=== PATIENT | male | born 1970 | race African-American/Black ===

== ENCOUNTER 2016-10-25 12:46 | Emergency (ER) | payer SELFPAY ==
[2016-10-25] MEDS ORDERED: HYDROCODONE/ACETAMINOPHEN 5-325 MG TABLET PO ONE (14:16)
[2016-10-25 15:00] LABS: ABSOLUTE EOSINOPHILS # (AUTO) 0.1 10^3/uL (0.0-0.6); ABSOLUTE LYMPHOCYTES (AUTO) 1.1 10^3/uL (0.5-4.7); ABSOLUTE MONOCYTES (AUTO) 1.2 10^3/uL (0.1-1.4); ABSOLUTE NEUT (AUTO) 5.5 10^3/uL (1.7-8.2); BASOPHILS % (AUTO) 0.3 % (0-2); EOSINOPHILS % (AUTO) 1.5 % (0-6); HEMATOCRIT 45.9 % (37.9-51.0); HGB HCT DIFFERENCE -0.9; LYMPHOCYTES % (AUTO) 13.5 % (13-45); MEAN CORPUSCULAR HEMOGLOBIN 32.6 pg (27.0-33.4); MEAN CORPUSCULAR HGB CONC 32.6 g/dL (32.0-36.0); MEAN CORPUSCULAR VOLUME 100 fl (80-97); MONOCYTES % (AUTO) 14.7 % (3-13); RED BLOOD COUNT 4.59 10^6/uL (4.35-5.55); RED CELL DISTRIBUTION WIDTH 14.1 % (11.5-14.0); WHITE BLOOD COUNT 7.9 10^3/uL (4.0-10.5)
--- NOTE | 2016-10-25 15:14 | ER Document Report ---
ED Medical Screen (RME) - General Chief Complaint: Abdominal Pain Stated Complaint: ABDOMINAL PAIN, BLOOD IN STOOL Time Seen by Provider: 10/25/16 14:14 Mode of Arrival: Ambulatory Information source: Patient Notes: 46-year-old male presents with complaints of multiple episodes of diarrhea with blood in left lower quadrant abdominal pain. Denies any fevers or chills I have greeted and performed a rapid initial assessment of this patient. A comprehensive ED assessment and evaluation of the patient, analysis of test results and completion of the medical decision making process will be conducted by additional ED providers. PHYSICAL EXAMINATION: GENERAL: Well-appearing, well-nourished and in no acute distress. HEAD: Atraumatic, normocephalic. EYES: Pupils equal round extraocular movements intact, conjunctiva are normal. ENT: Nares patent NECK: Normal range of motion LUNGS: No respiratory distress Musculoskeletal: Normal range of motion mild left lower quadrant tenderness NEUROLOGICAL: Normal speech, normal gait. PSYCH: Normal mood, normal affect. SKIN: Warm, Dry, normal turgor, no rashes or lesions noted. TRAVEL OUTSIDE OF THE [place] IN LAST 30 DAYS: No - Related Data Allergies/Adverse Reactions: No Known Allergies Allergy (Unverified 11/18/11 08:35) Past Medical History - Social History Chew tobacco use (# tins/day): No Frequency of alcohol use: Heavy Drug Abuse: None Renal/ Medical History: Denies: Hx Peritoneal Dialysis - Immunizations Hx Diphtheria, Pertussis, Tetanus Vaccination: Yes Physical Exam - Vital signs Vitals: Temp Pulse Resp BP Pulse Ox 97.9 F 88 20 144/93 H 98 10/25/16 13:20 10/25/16 13:20 10/25/16 13:20 10/25/16 13:20 10/25/16 13:20 Course - Vital Signs Vital signs: Temp Pulse Resp BP Pulse Ox 97.9 F 88 20 144/93 H 98 10/25/16 13:20 10/25/16 13:20 10/25/16 13:20 10/25/16 13:20 10/25/16 13:20 - Laboratory Result Diagrams: 10/25/16 14:44 10/25/16 14:44 Laboratory results interpreted by me: 10/25/16 14:44 MCV 100 H RDW 14.1 H Monocytes % 14.7 H
[2016-10-25 15:19] LABS: ALANINE AMINOTRANSFERASE 82 U/L (21-72); ALBUMIN 4.3 g/dL (3.5-5.0); ALKALINE PHOSPHATASE 85 U/L (38-126); ANION GAP 14 (5-19); ASPARTATE AMINO TRANSFERASE 84 U/L (17-59); BILIRUBIN,DIRECT 0.3 mg/dL (0.0-0.4); BILIRUBIN,TOTAL 1.2 mg/dL (0.2-1.3); BLOOD UREA NITROGEN 6 mg/dL (7-20); CALCIUM 9.5 mg/dL (8.4-10.2); CARBON DIOXIDE 26 mmol/L (22-30); CHLORIDE 99 mmol/L (98-107); GLUCOSE 83 mg/dL (75-110); SODIUM 139.4 mmol/L (137-145); TOTAL PROTEIN 7.8 g/dL (6.3-8.2)
[2016-10-25 17:10] LABS: APPEARANCE,URINE SLIGHTLY-CLOUDY; BILIRUBIN,URINE MODERATE (NEGATIVE); GLUCOSE, URINE NEGATIVE (NEGATIVE); KETONES,URINE 300 mg/dL (NEGATIVE); NITRITE,URINE NEGATIVE (NEGATIVE); PROTEIN,URINE 100 mg/dL (NEGATIVE); URINE SPECIFIC GRAVITY 1.032
[2016-10-25 17:11] LABS: BACTERIA,URINE 1+ /HPF; LEUKOCYTE ESTERASE,URINE LARGE (NEGATIVE); WBC,URINE 30-50 /HPF
--- NOTE | 2016-10-25 17:33 | ER Document Report ---
ED GI/ - General Chief Complaint: Abdominal Pain Stated Complaint: ABDOMINAL PAIN Time Seen by Provider: 10/25/16 14:14 Mode of Arrival: Ambulatory Information source: Patient Notes: 46-year-old male presents with approximately 3-4 days of left lower quadrant pain accompanied by diarrhea and intermittent bright red blood per rectum. He has some mild rectal pain. He denies any foreign bodies. Denies fever. He had one day where he had some vomiting. The pain is sharp in the left lower quadrant without radiation and he notes that when he is having a bowel movement and is partially intermittent other than that. He denies any upper abdominal pain. No recent antibiotic use. Characterizes the diarrhea as watery. Appetite has been poor. No anticoagulants. Denies recent travel or antibiotic use. TRAVEL OUTSIDE OF THE [place] IN LAST 30 DAYS: No - Related Data Allergies/Adverse Reactions: No Known Allergies Allergy (Unverified 11/18/11 08:35) Past Medical History - General Information source: Patient - Social History Smoking Status: Current Every Day Smoker Chew tobacco use (# tins/day): No Frequency of alcohol use: Heavy Drug Abuse: None Family History: Reviewed & Not Pertinent Patient has suicidal ideation: No Patient has homicidal ideation: No Renal/ Medical History: Denies: Hx Peritoneal Dialysis - Immunizations Hx Diphtheria, Pertussis, Tetanus Vaccination: Yes Review of Systems - Review of Systems -: Yes All other systems reviewed and negative - Denies weight change Physical Exam - Vital signs Vitals: Temp Pulse Resp BP Pulse Ox 97.9 F 88 20 144/93 H 98 10/25/16 13:20 10/25/16 13:20 10/25/16 13:20 10/25/16 13:20 10/25/16 13:20 Interpretation: Hypertensive - Notes Notes: GENERAL: VS as per nursing doc. Well-appearing, well-nourished and in no acute distress. HEAD: Atraumatic, normocephalic. EYES: Pupils equal round and reactive to light, extraocular movements intact, sclera anicteric, no conjunctival injection or discharge. ENT: Nares patent, oropharynx clear without exudates, moist mucous membranes. NECK: Normal range of motion, supple without lymphadenopathy. LUNGS: Breath sounds clear to auscultation bilaterally and equal. No wheezes rales or rhonchi. HEART: Regular rate and rhythm without murmurs. ABDOMEN: Soft, minimal left lower quadrant tenderness to palpation. No mass noted. No upper abdominal tenderness. Normoactive bowel sounds. No guarding, no rebound. No masses appreciated. No Alsey sign. : No gross blood noted. There is moderate rectal tenderness. Tenesmus. No stool noted, negative Hemoccult with just mucus. No obvious mass. BACK: No CVA tenderness. EXTREMITIES: Normal range of motion, no calf tenderness, no edema. NEUROLOGICAL: Cranial nerves grossly intact. Normal speech. Normal sensory and motor exams. No gross cerebellar abnormalities. PSYCH: Normal mood, normal affect. SKIN: Warm, dry, normal turgor. Course - Re-evaluation Re-evalutation: 10/25/16 18:49 CT showed pancolitis, I suspect infectious etiology though inflammatory bowel despite no family history is a consideration. His lipase was elevated but clinically he does not seem to have pancreatitis as well the pancreas did not show pancreatitis on the CT scan. We will place the patient on Cipro and Flagyl and have him get close follow-up in the next 2 days with recheck here if he cannot get into gastroenterology. - Vital Signs Vital signs: Temp Pulse Resp BP Pulse Ox 97.9 F 88 20 144/93 H 98 10/25/16 13:20 10/25/16 13:20 10/25/16 13:20 10/25/16 13:20 10/25/16 13:20 - Laboratory Result Diagrams: 10/25/16 14:44 10/25/16 14:44 Laboratory results interpreted by me: 10/25/16 10/25/16 10/25/16 14:44 14:44 14:44 MCV 100 H RDW 14.1 H Monocytes % 14.7 H BUN 6 L AST 84 H ALT 82 H Lipase 569.7 H Urine Protein Urine Ketones Urine Blood Urine Bilirubin Urine Urobilinogen Ur Leukocyte Esterase 10/25/16 16:25 MCV RDW Monocytes % BUN AST ALT Lipase Urine Protein 100 H Urine Ketones 300 H Urine Blood SMALL H Urine Bilirubin MODERATE H Urine Urobilinogen 2.0 H Ur Leukocyte Esterase LARGE H - Diagnostic Test Radiology reviewed: Image reviewed - Pancolitis, Reports reviewed Discharge - Discharge Clinical Impression: Colitis Condition: Good Disposition: HOME, SELF-CARE Instructions: Abdominal Pain ([facility]) Additional Instructions: No alcohol as it will cause a severe reaction with the Flagyl. Ensure you get follow-up in the next 2 or 3 days. Call the listed delivery table operator for follow-up. You as well need a primary care physician. See the below referral. Finished all of the antibiotics as directed. Return if you are worsening. Prescriptions: Hyoscyamine Sulfate [Levsin 0.125 Tablet] 0.125 - 0.25 mg PO Q6HP PRN #12 tablet PRN Reason: For Abdominal Pain Ciprofloxacin HCl [Cipro 500 mg Tablet] 500 mg PO BID #14 tablet Metronidazole [Flagyl 500 mg Tablet] 500 mg PO Q8 #21 tablet Promethazine HCl [Phenergan 25 mg Tablet] 1 - 2 tab PO Q6H PRN #15 tablet PRN Reason: Forms: Smoking Cessation Education Referrals: DORI SHEFFIELD MD [ACTIVE STAFF] - Follow up in 3-5 days [facility] [Provider Group] - Follow up as needed
--- NOTE | 2016-10-25 17:42 | RADIOLOGY REPORT (SQ) ---
EXAM DESCRIPTION: CT ABD/PELVIS WITH IV ONLY COMPLETED DATE/TIME: 10/25/2016 5:20 pm REASON FOR STUDY: LLQ pain , blood in stool COMPARISON: None. TECHNIQUE: CT scan of the abdomen and pelvis performed using helical scanning technique with dynamic intravenous contrast injection. No oral contrast. Images reviewed with lung, soft tissue, and bone windows. Reconstructed coronal and sagittal MPR images reviewed. Delayed images for evaluation of the urinary system also acquired. All images stored on PACS. All CT scanners at this facility use dose modulation, iterative reconstruction, and/or weight based d osing when appropriate to reduce radiation dose to as low as reasonably achievable (ALARA). [facility]: Dose Right [facility]: CareDose [facility]: Dose Right [facility]: Teradose 4D [facility]: [employer] CONTRAST TYPE AND DOSE: 88mL Isovue 370- low osmolar. RENAL FUNCTION: BUN 6 creatinine 0.8. RADIATION DOSE: 14.93mGy. LIMITATIONS: None. FINDINGS: LOWER CHEST: No significant findings. No nodules or infiltrates. LIVER: Normal size. Diffuse fatty infiltration. No masses or dilated ducts. SPLEEN: Normal size. No focal lesions. PANCREAS: No masses. No significant calcifications. No adjacent inflammation or peripancreatic fluid collections. Pancreatic duct not dilated. GALLBLADDER: No identified stones by CT criteria. No inflammatory changes to suggest cholecystitis. ADRENAL GLANDS: No significant masses or asymmetry. RIGHT KIDNEY AND URETER: No solid masses. No significant calcifications. No hydronephrosis or hyd roureter. LEFT KIDNEY AND URETER: No solid masses. No significant calcifications. No hydronephrosis or hydr oureter. AORTA AND VESSELS: No aneurysm. No dissection. Renal arteries, SMA, celiac without stenosis. RETROPERITONEUM: No retroperitoneal adenopathy, hemorrhage or masses. BOWEL AND PERITONEAL CAVITY: Diffuse bowel wall thickening and edema involving essentially the entire colon from cecum to sigmoid. No free fluid or peritoneal masses. APPENDIX: Normal. PELVIS: No mass or free fluid. Normal bladder. ABDOMINAL WALL: No masses. No hernias. BONES: No significant or acute findings. OTHER: No other significant finding. IMPRESSION: 1. DIFFUSE PANCOLITIS. POSSIBLE ETIOLOGIES INCLUDE INFLAMMATORY BOWEL DISEASE OR INFECTIOUS CAUSE. 2. NO OTHER SIGNIFICANT OR ACUTE FINDING IN THE ABDOMEN OR PELVIS ON CT SCAN WITH IV CONTRAST. TECHNICAL DOCUMENTATION: JOB ID: [id number] Quality ID # [id number]: Final reports with documentation of one or more dose reduction techniques (e.g., Au tomated exposure control, adjustment of the mA and/or kV according to patient size, use of iterative reconstruction technique) 2010 [employer]- All Rights Reserved
[2016-10-25] MEDS ORDERED: CIPROFLOXACIN HCL 500 MG TABLET PO ONE (18:50)
[2016-10-25] MEDS ORDERED: METRONIDAZOLE 500 MG TABLET PO ONE (18:50)
[2016-10-25 19:13] VITALS: BP 129/78
== END 2016-10-25 19:12 | disposition home or self-care (01) ==
LOC: ER 12:46
DX: K52.9 Noninfective gastroenteritis and colitis, unspecified (principal); R10.32 Left lower quadrant pain; K62.5 Hemorrhage of anus and rectum; F17.200 Nicotine dependence, unspecified, uncomplicated
CPT/HCPCS: 36415; 74177; 80053; 81001; 83690; 85025; 87086; 99284

== ENCOUNTER 2016-12-16 15:31 | Emergency (ER) | payer SELFPAY ==
[2016-12-16] MEDS ORDERED: OXYCODONE-ACETAMINOPHEN 5-325 MG TABLET PO ONE (15:55)
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
[2016-12-16 18:38] VITALS: BP 151/101
== END 2016-12-16 18:40 | disposition home or self-care (01) ==
LOC: ER 15:31
DX: S93.401A Sprain of unspecified ligament of right ankle, initial encounter (principal); S53.401A Unspecified sprain of right elbow, initial encounter; S70.11XA Contusion of right thigh, initial encounter; S80.211A Abrasion, right knee, initial encounter; S50.311A Abrasion of right elbow, initial encounter; V28.9XXA Unspecified motorcycle rider injured in noncollision transport accident in traffic accident, initial encounter; F17.200 Nicotine dependence, unspecified, uncomplicated; R03.0 Elevated blood-pressure reading, without diagnosis of hypertension
CPT/HCPCS: 99283; 73610; 73080; 73552; L1902

== ENCOUNTER 2018-05-31 20:21 | Emergency (ER) | payer OTHER ==
[2018-05-31] MEDS ORDERED: ASPIRIN 81 MG TABLET, CHEWABLE PO ONE (20:37)
--- NOTE | 2018-05-31 20:41 | ER Document Report ---
ED General - General Stated Complaint: CHEST PAIN Time Seen by Provider: 05/31/18 20:28 Notes: Patient is a 47-year-old male that comes to the emergency department by EMS from skilled nursing for chief complaint of pain in his chest that started at about 5 PM. He points to the center of his chest as the location of pain. EMS reports that initially he was 93% on room air and they placed him on oxygen and this came up to 97%. They also state that he was given 3 nitroglycerin tablets, had an axillary temperature of 102 F, given a first chewable aspirin dose and then given 975 mg of Tylenol. Patient states that earlier today he was constipated and he went to the nurse for this, he denies nausea or vomiting, shortness of breath, abdominal pain, flank pain, headache. He is medicated for hypertension, smokes, denies alcohol, denies ever using recreational drugs. Denies any surgeries. He has not had the flu shot. TRAVEL OUTSIDE OF THE [place] IN LAST 30 DAYS: No - Related Data Allergies/Adverse Reactions: No Known Allergies Allergy (Verified 05/31/18 21:19) Past Medical History - General Information source: Patient - Social History Smoking Status: Current Every Day Smoker Smoking Education Provided: Yes - <3 min Frequency of alcohol use: None Drug Abuse: None Lives with: Other - Currently incarcerated Family History: Reviewed & Not Pertinent - Past Medical History Cardiac Medical History: Reports: Hx Hypertension Renal/ Medical History: Denies: Hx Peritoneal Dialysis - Immunizations Hx Diphtheria, Pertussis, Tetanus Vaccination: Yes Review of Systems - Review of Systems Constitutional: See HPI EENT: No symptoms reported Cardiovascular: See HPI Respiratory: See HPI Gastrointestinal: No symptoms reported Genitourinary: No symptoms reported Male Genitourinary: No symptoms reported Musculoskeletal: No symptoms reported Skin: No symptoms reported Hematologic/Lymphatic: No symptoms reported Neurological/Psychological: No symptoms reported Physical Exam - Vital signs Vitals: Resp BP Pulse Ox 19 109/73 99 05/31/18 20:42 05/31/18 20:42 05/31/18 20:42 - Notes Notes: GENERAL: Alert, interacts well. No acute distress. HEAD: Normocephalic, atraumatic. EYES: Pupils equal, round, and reactive to light. Extraocular movements intact. ENT: Oral mucosa moist, tongue midline. Oropharynx unremarkable. Airway patent. Nares patent, no nasal septal hematoma, TM's intact. NECK: Full range of motion. Supple. Trachea midline. LUNGS: Clear to auscultation bilaterally, no wheezes, rales, or rhonchi. No respiratory distress. No tenderness. HEART: Regular rate and rhythm. No murmur ABDOMEN: Soft, minimal tenderness in the general lower quadrants, nonspecific, not repeatable. Absolutely no guarding. Non-distended. Bowel sounds present in all 4 quadrants. GENITOURINARY: Deferred EXTREMITIES: Moves all 4 extremities spontaneously. No edema, normal radial and dorsalis pedis pulses bilaterally. No cyanosis. BACK: no cervical, thoracic, lumbar midline tenderness. No saddle anesthesia, normal distal neurovascular exam. NEUROLOGICAL: Alert and oriented x3. Normal speech. [cranial nerves II through XII grossly intact]. PSYCH: Normal affect, normal mood. SKIN: Warm, dry, normal turgor. No rashes or lesions noted. Course - Re-evaluation Re-evalutation: Patient reportedly was hypoxic initially and then placed on oxygen and this resolved. On room air he is comfortable without tachypnea, has clear lungs, and has a pulse oxygenation of 100%. They also report that he had a temperature of 102 F, he was given full dose aspirin and full dose Tylenol and now he does not have a fever. He is not in any distress. He is mildly tachycardic at 104 at bedside. He is not hypotensive. Soft benign abdomen with minimal tenderness. No headache. Workup pending. Patient started getting a headache on reevaluation, his blood pressure also became soft. He had received 3 doses of nitroglycerin. He will receive IV fluid bolus, Toradol. Chest x-ray unremarkable. EKG with no acute findings. CBC unremarkable, chemistry unremarkable, lactic acid is not elevated. Troponin is negative. Influenza is negative. I reevaluated patient. He states that he only has chest discomfort when he is taking a deep breath. He does not have chest pain on palpation. Because of his pleuritic type pain, borderline tachycardia initially, d-dimer was added but this was also negative. 06/01/18 00:25 Second troponin is pending. Patient has a heart score of 2 (age of 47, to risk factors including hypertension and smoking). No personal or family history of cardiac disease. Reportedly he had a fever initially, however this was an axillary temperature, immediately after arrival we checked it and medications that had been given in route were antipyretic but I would be shocked if he went from a temperature 102 to afebrile that quickly (around 10 minutes). I suspect initial error. Patient states he never felt like he had a fever. He also reported hypoxia at 93% but patient has had no hypoxia on continuous monitoring here, he has remained 100% without tachypnea. Clear lung sounds. I will suspect this was also an error. Patient asymptomatic at bedside. He denies ever feeling short of breath. I did discuss with patient workup, findings, d iscussed different possibilities. After discussion decision was made that he would be treated for pleurisy potentially if workup is negative with follow-up instructions and return precautions. Patient states satisfaction and agreement. Second troponin is negative. I discussed the patient's presentation, symptoms, evaluation, and workup with Dr. Chairez. Patient was discharged with return precautions. - Vital Signs Vital signs: Temp Pulse Resp BP Pulse Ox 97.9 F 100 16 98/68 L 100 06/01/18 00:04 05/31/18 21:11 06/01/18 00:31 06/01/18 00:45 06/01/18 00:31 - Laboratory Result Diagrams: 05/31/18 20:43 05/31/18 20:43 Laboratory results interpreted by me: 05/31/18 05/31/18 20:43 20:43 RBC 4.06 L Hgb 12.0 L Hct 36.4 L Monocytes % 13.3 H Glucose 111 H - EKG Interpretation by Me Additional EKG results interpreted by me: EKG results per my interpretation show sinus tachycardia at a rate of 106, slightly flattened T waves laterally and inferiorly, no T wave inversions or ST segment changes in consecutive leads, QTC 399, VT interval is 148. Discharge - Discharge Clinical Impression: Inspiratory pain Chest pain Qualifiers: Chest pain type: unspecified Qualified Code(s): R07.9 - Chest pain, unspecified Condition: Stable Disposition: HOME, SELF-CARE Additional Instructions: Your evaluation does not show any concerning abnormality at this time. Your symptoms are most suggestive of pleurisy, this is inflammation of the surface of the lung tissue which can be caused by a virus, activity, old scar tissue, etc. This usually resolves with taking an anti-inflammatory such as naproxen which you were prescribed. Take as prescribed. Take the Pepcid to avoid gastrointestinal upset while taking this medication. Consider [id number] stool softener such as MiraLAX or Colace for recent constipation. Return if you worsen including fever, vomiting, difficulty breathing, passing out, severe pain in the chest or abdomen, or any other concerning symptoms. Prescriptions: Famotidine [Pepcid 20 mg Tablet] 20 mg PO BID #14 tablet Naproxen 500 mg PO BID PRN #14 tablet PRN Reason:
[2018-05-31 21:02] LABS: VENOUS BLOOD BASE EXCESS 3.7 mmol/L; VENOUS BLOOD HCO3 29.4 mmol/L (20-32); VENOUS BLOOD PCO2 48.5 mmHg (35-63); VENOUS BLOOD PH 7.4 (7.30-7.42)
[2018-05-31 21:03] LABS: ABSOLUTE EOSINOPHILS # (AUTO) 0.1 10^3/uL (0.0-0.6); ABSOLUTE LYMPHOCYTES (AUTO) 1.3 10^3/uL (0.5-4.7); ABSOLUTE MONOCYTES (AUTO) 1.2 10^3/uL (0.1-1.4); ABSOLUTE NEUT (AUTO) 6.7 10^3/uL (1.7-8.2); BASOPHILS % (AUTO) 0.3 % (0-2); EOSINOPHILS % (AUTO) 0.7 % (0-6); HEMATOCRIT 36.4 % (37.9-51.0); LYMPHOCYTES % (AUTO) 13.7 % (13-45); MEAN CORPUSCULAR HEMOGLOBIN 29.5 pg (27.0-33.4); MEAN CORPUSCULAR VOLUME 90 fl (80-97); MONOCYTES % (AUTO) 13.3 % (3-13); PLATELET COUNT 186 10^3/uL (150-450); RED BLOOD COUNT 4.06 10^6/uL (4.35-5.55); TOTAL CELLS COUNTED % (AUTO) 100 %; WHITE BLOOD COUNT 9.3 10^3/uL (4.0-10.5)
[2018-05-31 21:25] LABS: ALANINE AMINOTRANSFERASE 32 U/L (21-72); ALBUMIN 4.1 g/dL (3.5-5.0); ALKALINE PHOSPHATASE 54 U/L (38-126); ANION GAP 9 (5-19); ASPARTATE AMINO TRANSFERASE 19 U/L (17-59); BILIRUBIN,TOTAL 0.6 mg/dL (0.2-1.3); BLOOD UREA NITROGEN 17 mg/dL (7-20); CALCIUM 8.8 mg/dL (8.4-10.2); CARBON DIOXIDE 27 mmol/L (22-30); CHLORIDE 101 mmol/L (98-107); GLUCOSE 111 mg/dL (75-110); POTASSIUM 3.6 mmol/L (3.6-5.0); SODIUM 137.1 mmol/L (137-145); TOTAL PROTEIN 6.9 g/dL (6.3-8.2)
--- NOTE | 2018-05-31 21:25 | RADIOLOGY REPORT (SQ) ---
EXAM DESCRIPTION: XR CHEST 1 VIEW COMPLETED DATE/TME: 05/31/2018 20:33 CLINICAL HISTORY: 47 years, Male, chest pain, fever COMPARISON: None. NUMBER OF VIEWS: 1 TECHNIQUE: Frontal view chest LIMITATIONS: None. FINDINGS: Heart size is normal. Lungs are clear. No pneumothorax IMPRESSION: Negative chest copyright 2011 [employer]- All Rights Reserved
[2018-05-31 21:46] LABS: A TYPE INFLUENZA AG NEGATIVE (NEGATIVE); B INFLUENZA AG NEGATIVE (NEGATIVE)
[2018-05-31 22:37] LABS: APPEARANCE,URINE CLEAR; BILIRUBIN,URINE NEGATIVE (NEGATIVE); COLOR,URINE YELLOW; GLUCOSE, URINE NEGATIVE (NEGATIVE); KETONES,URINE NEGATIVE (NEGATIVE); LEUKOCYTE ESTERASE,URINE NEGATIVE (NEGATIVE); NITRITE,URINE NEGATIVE (NEGATIVE); PROTEIN,URINE NEGATIVE (NEGATIVE); URINE SPECIFIC GRAVITY 1.019; UROBILINOGEN,URINE NEGATIVE mg/dL (<2.0)
[2018-05-31] MEDS ORDERED: NORMAL SALINE 1000 ML 1,000 ML IV ONE (22:49)
[2018-05-31] MEDS ORDERED: KETOROLAC TROMETHAMINE INJ/PF 30 MG/1 ML SDV IV ONE (22:49)
[2018-06-01 01:02] VITALS: BP 91/57
--- NOTE | 2018-06-01 08:56 | EKG REPORT ---
SEVERITY:- BORDERLINE ECG - SINUS TACHYCARDIA BORDERLINE T WAVE ABNORMALITIES : Confirmed by: Robin Last MD 01-Jun-2018 08:55:53
== END 2018-06-01 01:08 | disposition home or self-care (01) ==
LOC: ER 20:21
DX: R07.81 Pleurodynia (principal); R07.9 Chest pain, unspecified; F17.210 Nicotine dependence, cigarettes, uncomplicated; I10 Essential (primary) hypertension
CPT/HCPCS: 93005; 99285; 96361; 96374; 36415; 87040; 85025; 80053; 81001; 84484; 85379; 82803; 83605; 87804; 71045; 93010; J1885; J7030

== ENCOUNTER 2019-03-09 12:00 | Emergency (ER) | payer SELFPAY ==
[2019-03-09 12:05] VITALS: BP 132/88
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
[2019-03-09] MEDS ORDERED: IBUPROFEN 600 MG TABLET PO ONE (12:51)
== END 2019-03-09 13:00 | disposition home or self-care (01) ==
LOC: ER 12:00
DX: S01.81XA Laceration without foreign body of other part of head, initial encounter (principal); W45.8XXD Other foreign body or object entering through skin, subsequent encounter; F17.200 Nicotine dependence, unspecified, uncomplicated; I10 Essential (primary) hypertension
CPT/HCPCS: 99281